=== PATIENT | male | born 1955 | race Caucasian/White ===

== ENCOUNTER 2017-11-01 01:43 | Emergency (ER) | payer OTHER ==
[~2017-11-01] VITALS: Ht 182.9 cm; Wt 109.8 kg
[2017-11-01 01:52] VITALS: Ht 182.9 cm; Wt 109.8 kg
[2017-11-01] MEDS ORDERED: IPRATROPIUM (NEB) 0.5 MG/2.5 ML AMP NEB STA (03:07)
[2017-11-01] MEDS ORDERED: ALBUTEROL 0.083% (NEB) 2.5 MG/3 ML AMP NEB STA (03:07)
--- NOTE | 2017-11-01 03:10 | ERD ---
ER Documentation Chief Complaint Chief Complaint cough/congestion x 3 days HPI This 62 yo male patient prestent to ED for 3 days hx of cough and sinus pressure and congestion ROS All systems reviewed and are negative except as per history of present illness. Allergies Allergies: Coded Allergies: No Known Drug Allergies (Verified Allergy, Unknown, 11/01/17) PMhx/Soc Medical and Surgical Hx: pt denies Medical Hx History of Surgery: Yes (left knee and left face orbital, >30 years) Anesthesia Reaction: No Hx Neurological Disorder: No Hx Respiratory Disorders: No Hx Cardiac Disorders: No Hx Psychiatric Problems: No Hx Miscellaneous Medical Probl: No Hx Alcohol Use: Yes (wine, one glass 10/31/17) Hx Substance Use: No Hx Tobacco Use: No Smoking Status: Never smoker Physical Exam Vitals Vital Signs Date Time Temp Pulse Resp B/P Pulse Ox O2 Delivery O2 Flow Rate FiO2 11/01/17 03:46 75 20 95 21 11/01/17 01:52 97.7 68 20 157/92 97 Vitals stable,notes reviewed, Physical Exam Const: Well-nourished, well-hydrated, well-appearing 62-year-old male patient no acute distress ENT: Bilateral tympanic membranes are translucent, positive light reflex, nasal mucosa is moist, right naris completely obstructed, turbinates touching, maxillary and frontal sinus tenderness on right, pharynx is pink, uvula midline , no shift, rises and falls with pronation. Tongue is midline, moist Neck: Full range of motion..~ No meningismus. No lymphadenopathy Resp: Respirations shallow, rises and falls symmetrically, coughs with deep breathing, coarse inspiratory and expiratory wheeze Cardio: Regular rate and rhythm, no murmurs Abd: Soft, non tender, non distended. Neur: Awake and alert Psych: Normal Mood and Affect Results 24 hrs Current Medications Medications (Trade) Dose Ordered Sig/Govind Route PRN Reason Start Time Stop Time Status Last Admin Dose Admin Albuterol (Proventil 0.083% (Neb)) 5 mg ONCE STAT NEB 11/01/17 03:07 11/01/17 03:18 DC 11/01/17 03:46 Ipratropium Eldred (Atrovent 0.02% (Neb)) 0.5 mg ONCE STAT NEB 11/01/17 03:07 11/01/17 03:18 DC 11/01/17 03:46 Amoxicillin (Amoxicillin) 500 mg ONCE ONCE PO 11/01/17 03:30 11/01/17 03:31 DC 11/01/17 03:43 Ibuprofen (Motrin) 600 mg ONCE ONCE PO 11/01/17 04:30 11/01/17 04:31 DC 11/01/17 04:47 Procedures/MDM This 62-year-old male patient presents to emergency department with 14 days of sinus congestion, difficulty breathing, headache, and abnormal tasting food. Patient reports he started coughing 3 days ago, denies shortness of breath, history of asthma, denies smoking. Patient reports that his smokes but does not smoke in the house. Emergency room course includes history and physical exam, exam findings support a sinusitis and bronchitis, patient treated with albuterol, Atrovent, hand-held nebulized treatment, post treatment auscultation, patient no longer is wheezing, cough sounds loose and more productive. Patient reports feeling improvement of symptoms. Sinusitis will be treated with amoxicillin 500 mg every 8 hours 10 days, first dose given in emergency department today. Ibuprofen 600 mg given for headache symptoms. Patient will be discharged home to continue current treatment, increase fluids, increase rest, return to emergency department if symptoms fail to improve as anticipated. Patient is stable with no new complaints during ER course, clinically there is no current evidence to suggest meningitis, sepsis, pneumonia , respiratory distress COPD, acute coronary syndromes, pulmonary embolism or any other emergent condition appearing to require further evaluation or hospitalization. I feel the patient is stable for discharge at this time. I have discussed results, examination findings, the treatment plan with the patient and family present prior to discharge. Indications for emergent reevaluation, side effects of medication were also discussed. All questions were answered. Patient verbalizes understanding and agrees with plan of care. Departure Diagnosis: Primary Impression: Acute bacterial sinusitis Additional Impression: Acute bronchitis Bronchitis organism: unspecified organism Qualified Code: J20.9 - Acute bronchitis, unspecified organism Condition: Good Patient Instructions: Acute Sinusitis, Bronchitis With Wheezing (Adult), Self- Care for Sinusitis Referrals: [facility] Additional Instructions: Thank you for for coming to [facility] for your care today. Please ask your nurse or provider if you have questions about your care today and do not leave until all your questions have been answered. Please use any medications given as directed and follow-up with your doctor (or the doctor you were referred to) in the next 2-3 days. If you do not have a primary care doctor you may follow up at the [facility] (listed below). You may also use motrin and tylenol as needed for fever and/or pain unless instructed otherwise by your provider or nurse. Indications for more urgent follow-up have been discussed, but you may return to the Emergency Department at ANY time for any worrisome or worsening symptoms. If you have abdominal pain, please know that no test or exam you received is perfect and you should follow up within 8 hours for continued pain. If you had any imaging studies today, such as an X-Ray or CT Scan, these studies will be reviewed later by a radiologist. You will be called if there are important findings that were not identified today, so make sure the contact information you provided at registration is correct. If you received any narcotic pain control medicine today, such as Vicodin, Morphine or Dilaudid, your coordination and judgment may be affected for a number of hours. Please do not drive or operate heavy machinery, and you may want someone to assist you at home. If you were given a prescription for narcotic medication, be aware that it is very addictive- use sparingly and only if necessary. MYARNDA CURTIS Nov 01, 2017 03:10
[2017-11-01] MEDS ORDERED: AMOXICILLIN 500 MG CAP PO ONE (03:30)
[2017-11-01] MEDS ORDERED: IBUPROFEN 600 MG TAB PO ONE (04:30)
[2017-11-01] MEDS ORDERED: ALBU18HF INHALATION (05:03)
[2017-11-01] MEDS ORDERED: AMOX500C2 PO (05:03)
[2017-11-01 05:12] VITALS: BP 130/84; PULSE 71; RESP 16; TEMP 97.8
== END 2017-11-01 05:13 | disposition home or self-care (01) ==
LOC: FTE 01:43
DX: J01.90 Acute sinusitis, unspecified (principal); J20.9 Acute bronchitis, unspecified
CPT/HCPCS: 94664; Z7502; Z7610